=== PATIENT | female | born 1985 | race Caucasian/White ===

== ENCOUNTER 2023-07-11 18:05 | Emergency (ER) | payer OTHER ==
[~2023-07-11] VITALS: Ht 162.6 cm; Wt 65.8 kg
[2023-07-11 18:07] VITALS: BP 124/85; PULSE 69; RESP 18; TEMP 98; O2SAT 99
[2023-07-11] MEDS ORDERED: IBUPROFEN 600 MG TAB PO ONE (18:55)
[2023-07-11] MEDS ORDERED: ACETAMINOPHEN EXTRA STRENGTH 500 MG TAB PO ONE (18:55)
== END 2023-07-11 19:09 | disposition home or self-care (01) ==
LOC: MED 18:05
DX: S16.1XXA Strain of muscle, fascia and tendon at neck level, initial encounter (principal); F41.9 Anxiety disorder, unspecified; V89.2XXA Person injured in unspecified motor-vehicle accident, traffic, initial encounter; Y93.89 Activity, other specified; Y92.410 Unspecified street and highway as the place of occurrence of the external cause; Y99.8 Other external cause status
CPT/HCPCS: 99283